=== PATIENT | female | born 1960 | race Caucasian/White ===

== ENCOUNTER 2016-06-19 11:36 | Emergency (ER) | payer BC ==
[2016-06-19 12:48] VITALS: BP 132/84
--- NOTE | 2016-06-19 13:17 | UC ---
Eye Complaint HPI - HPI Summary HPI Summary: two days of itchy, eye lids with thickening. she has had sneezing and wheezing on occassion as well. no sob now. she has hx of eczyma and occassional seasonal allergies. - History of Current Complaint Chief Complaint: UCEye Stated Complaint: BILATERAL EYE COMPLAINT,SNEEZING Time Seen by Provider: 06/19/16 12:57 Hx Obtained From: Patient Hx Last Menstrual Period: PERIODICALLY R/T MENOPAUSE Onset/Duration: Gradual Onset, Lasting Days Timing: Constant Severity Initially: Moderate Severity Currently: Moderate Location of Injury: Eye Lid (lower), Eye Lid (upper), Periorbital Aggravating Factor(s): Other - scratching. Alleviating Factor(s): Nothing Associated Signs And Symptoms: Positive: Swelling. Negative: Photophobia, Drainage (Clear), Drainage (Purulent), Vision Impairment Bilateral, Vision Impairment Right, Vision Impairment Left, Fever - Risk Factors Penetrating Injury Risk Factor: Negative Globe Rupture Risk Factors: Negative Acute Glaucoma Risk Factors: Negative - Allergies/Home Medications Allergies/Adverse Reactions: Allergies Allergy/AdvReac Type Severity Reaction Status Date / Time Sulfa Drugs Allergy Intermediate Rash Verified 03/22/13 11:09 Home Medications: Home Medications Cholecalciferol [Vitamin D] 1,000 unit PO DAILY 06/19/16 [History Confirmed 09/30] Simvastatin [Zocor 5 MG-] 5 mg PO DAILY 06/19/16 [History Confirmed 06/19/16] Thyroid [Jasper Thyroid] 90 mg PO DAILY 06/19/16 [History Confirmed 06/19/16] PMH/Surg Hx/FS Hx/Imm Hx Endocrine History Of: Reports: Thyroid Disease - HYPOTHYROID - Surgical History Surgical History: Yes Surgery Procedure, Year, and Place: RIGHT KNEE TORN MENISCUS, TORN ACL, right hand reconstructive joint surgery - Family History Known Family History: Positive: None - no hx of asthma. - Social History Alcohol Use: Occasionally Substance Use Type: None Smoking Status (MU): Never Smoked Tobacco Review of Systems ENT: Negative, Other - sneezing. All Other Systems Reviewed And Are Negative: Yes Physical Exam Triage Information Reviewed: Yes Appearance: Well-Appearing, No Pain Distress, Well-Nourished Vital Signs: Initial Vital Signs Temp 98.5 F 06/19/16 12:40 Pulse 63 06/19/16 12:40 Resp 16 06/19/16 12:40 BP 132/84 06/19/16 12:40 Pulse Ox 99 06/19/16 12:40 Vital Signs Reviewed: Yes Eyes: Positive: Conjunctiva Clear, Other: - annamarie upper and lower eye lid thickening and lichinfication. EOMI. no proptosis.. Negative: Conjunctiva Inflamed, Discharge ENT: Positive: Normal ENT inspection, Hearing grossly normal, Pharynx normal, Nasal congestion, TMs normal. Negative: Pharyngeal erythema, Nasal drainage, TM bulging, TM dull, TM red, Tonsillar swelling, Tonsillar exudate, Trismus, Muffled/hoarse voice Neck exam: Normal Neck: Positive: Supple, Nontender, No Lymphadenopathy, Tenderness @. Negative: Nuchal Rigidity Respiratory: Positive: Chest non-tender, Lungs clear, Normal breath sounds, No respiratory distress, No accessory muscle use. Negative: Respiratory distress, Decreased breath sounds, Accessory muscle use Cardiovascular Exam: Normal Cardiovascular: Positive: RRR, No Murmur, Pulses Normal, Brisk Capillary Refill Abdomen Description: Positive: Nontender, No Organomegaly, Soft Musculoskeletal: Positive: Strength Intact, ROM Intact, No Edema Neurological Exam: Normal Neurological: Positive: Alert Psychological Exam: Normal Skin Exam: Normal Skin: Positive: rashes Eye Complaint Course/Dx - Course Course Of Treatment: allergic process. - Differential Dx/Diagnosis Differential Diagnosis/HQI/PQRI: Conjunctivitis, Corneal Abrasion, Detached Retina, Foreign Body, Glaucoma, Hyphema, Keratitis, Penetrating Injury, Periorbital Cellulitis, Orbital Cellulitis, Retinal Artery Occlusion, Uveitis Provider Diagnoses: eye lid/facial eczyma. Discharge - Discharge Plan Condition: Good Disposition: HOME Prescriptions: Loratadine [Claritin] 10 mg PO BID #30 cap Methylprednisolone [Medrol Dosepak 4 MG*] 4 mg PO .SEE GINNY INSTRUCTION #21 tab Patient Education Materials: Eczema (ED) Referrals: Denver Stauffer NP [Primary Care Provider] - If Needed
== END 2016-06-19 13:17 | disposition home or self-care (01) ==
LOC: UCCORT 11:36
DX: L30.9 Dermatitis, unspecified (principal); Z88.2 Allergy status to sulfonamides; E03.9 Hypothyroidism, unspecified
CPT/HCPCS: 99202; G0463